=== PATIENT | male | born 1975 | race Hispanic/Latino ===

== ENCOUNTER 2023-08-01 12:16 | Emergency (ER) | payer OTHER ==
[~2023-08-01] VITALS: Ht 172.7 cm; Wt 77.1 kg
[2023-08-01 12:45] VITALS: O2SAT 99
[2023-08-01] MEDS ORDERED: MELOXICAM15 MG PO (12:55)
[2023-08-01] MEDS ORDERED: PREDNISONE20 MG PO (12:55)
== END 2023-08-01 12:58 | disposition home or self-care (01) ==
LOC: ER 12:45
DX: M54.31 Sciatica, right side (principal); E11.9 Type 2 diabetes mellitus without complications; E78.5 Hyperlipidemia, unspecified
CPT/HCPCS: 99283